=== PATIENT | male | born 1980 | race Hispanic/Latino ===

== ENCOUNTER 2024-04-03 07:32 | Day surgery (SDC) | payer BC ==
[2024-04-03] VITALS (11 sets, daily range): BP systolic 103–122; BP diastolic 59–78; PULSE 58–78; RESP 14–20
[2024-04-03] MEDS ORDERED: MULT-1367 PO (11:45)
[2024-04-03] MEDS ORDERED: MONT-39 PO (11:45)
[2024-04-03] MEDS: LACTATED RINGERS 1000ML 1,000 ML IV ONE (11:46)
[2024-04-03] MEDS ORDERED: FENTANYL CITRATE PF 50 MCG/1 ML 2ML VIAL ONE (12:01)
[2024-04-03] MEDS ORDERED: PROPOFOL 10 MG/ML 20ML VIAL IV ONE ×2 (12:01→13:03)
[2024-04-03] MEDS ORDERED: LIDOCAINE HCL 400MG/20ML VIAL ONE (12:02)
[2024-04-03] MEDS ORDERED: ONDANSETRON 4MG INJ ONE (12:02)
[2024-04-03] MEDS ORDERED: IOHEXOL-350 50ML VIAL IV ONE (12:26)
== END 2024-04-03 14:05 | disposition home or self-care (01) ==
LOC: ENDO 07:32
PROVIDERS: ATTEND Internal Medicine Gastroenterology
DX: Z46.59 Encounter for fitting and adjustment of other gastrointestinal appliance and device (principal); K80.50 Calculus of bile duct without cholangitis or cholecystitis without obstruction; Z79.01 Long term (current) use of anticoagulants; Z90.49 Acquired absence of other specified parts of digestive tract; Z88.8 Allergy status to other drugs, medicaments and biological substances; Z88.3 Allergy status to other anti-infective agents
CPT/HCPCS: 43264; 74328; 43275; J7120; J3010; J3490; J2704 ×2; J2405; Q9967; A4215 ×2; A4223; A4657 ×2; A7002; A4222; A4221; A4663; A4606; C1769; C1773; 74330

== ENCOUNTER 2024-04-05 17:12 | Inpatient (IN) | payer BC ==
[~2024-04-05] VITALS: Ht 182.9 cm; Wt 88.2 kg
[~2024-04-05 17:12] MED LIST: MONT-39 PO; MULT-1367 PO
[2024-04-05 18:39] LABS: BASOPHILS # (AUTO) 0.02 K/uL (0.00-0.20); BASOPHILS % (AUTO) 0.4 % (0.0-5.0); EOSINOPHILS # (AUTO) 0.07 K/uL (0.00-0.70); EOSINOPHILS % (AUTO) 1.4 % (0.0-8.0); HEMATOCRIT 46.7 % (42-54); IMMATURE GRANULOCYTE ABSOLUTE 0.01 K/uL (0-1); LYMPHOCYTES # (AUTO) 0.7 K/uL (1.0-4.8); LYMPHOCYTES % (AUTO) 13.1 % (21.0-51.0); MEAN CORPUSCULAR HEMOGLOBIN 29.1 pg (27.0-33.0); MEAN CORPUSCULAR HGB CONC 33.8 g/dL (32.0-36.0); MONOCYTES # (AUTO) 0.5 K/uL (0.1-1.0); MONOCYTES % (AUTO) 10.4 % (3.0-13.0); NEUTROPHILS # (AUTO) 3.8 K/uL (1.8-7.7); NEUTROPHILS % (AUTO) 74.5 % (40.0-77.0); PLATELET COUNT (AUTO) 148 K/uL (130-400); RED BLOOD CELL COUNT(AUTO) 5.43 MIL/uL (4.50-6.20); WHITE BLOOD COUNT (AUTO) 5.1 K/uL (4.8-10.8)
[2024-04-05] MEDS ORDERED: IOHEXOL 350 MG/ML 100ML INFUS..BTL IV ONE (18:46)
[2024-04-05 18:47] LABS: POTASSIUM 4.5 mmol/L (3.5-5.1)
[2024-04-05 18:56] LABS: ALBUMIN 3.9 g/dL (3.5-5.0); BILIRUBIN,TOTAL 10.5 mg/dL (0.2-1.0); TOTAL PROTEIN, SERUM 7.2 g/dL (6.0-8.3)
[2024-04-05 19:07] LABS: APPEARANCE,URINE CLEAR (CLEAR); BILIRUBIN,URINE 2 mg/dL (NEGATIVE); COLOR,URINE DARK-YELLOW (YELLOW); GLUCOSE, URINE (UA) NEGATIVE (NEGATIVE); KETONES,URINE 20 mg/dL (NEGATIVE); LEUKOCYTE ESTERASE ,URINE NEGATIVE Leu/uL (NEGATIVE); NITRATE,URINE NEGATIVE (NEGATIVE); OCCULT BLOOD,URINE NEGATIVE (NEGATIVE); PH,URINE 6.5 (5.0-8.0); PROTEIN,URINE NEGATIVE (NEGATIVE); UROBILINOGEN,URINE 0.2 mg/dL (0.2-1.0)
[2024-04-05 19:08] LABS: ADD UA MICROSCOPIC YES
[2024-04-05 19:09] LABS: RBC,URINE 0-1 /HPF (0-1); WBC,URINE 0-1 /HPF (0-1)
[2024-04-05] MEDS ORDERED: DIATR MEGLU/DIATRIZOATE SODIUM 30 ML BOTTLE ONE (19:54)
[2024-04-05] MEDS: ACETAMINOPHEN 325 MG TAB PO PRN (20:59)
[2024-04-05] MEDS ORDERED: ONDANSETRON 4MG INJ IVP PRN (21:00)
[2024-04-05] MEDS: SOLU-MEDROL 125MG VIAL IVP STA (21:00)
[2024-04-05] MEDS: DIPHENHYDRAMINE HCL 25 MG CAPSULE PO STA (21:00)
[2024-04-06] VITALS (8 sets, daily range): BP systolic 113–133; BP diastolic 68–80; PULSE 60–86; RESP 17–19; O2SAT 96–98
[2024-04-06 13:11] LABS: MEAN CORPUSCULAR HEMOGLOBIN 28.3 pg (27.0-33.0); MEAN CORPUSCULAR HGB CONC 32.9 g/dL (32.0-36.0); MEAN CORPUSCULAR VOLUME 86.1 fL (79-99); PLATELET COUNT (AUTO) 175 K/uL (130-400); RED BLOOD CELL COUNT(AUTO) 5.69 MIL/uL (4.50-6.20); RED CELL DISTRIBUTION WIDTH 13.2 % (11.0-15.5)
[2024-04-06 13:54] LABS: BILIRUBIN,DIRECT 3.7 mg/dL (0.0-0.3); BILIRUBIN,TOTAL 5.2 mg/dL (0.2-1.0); MAGNESIUM 2.2 mg/dL (1.80-2.40); TOTAL PROTEIN, SERUM 7.9 g/dL (6.0-8.3)
[2024-04-06 14:10] LABS: BASOPHILS # (AUTO) 0.02 K/uL (0.00-0.20); BASOPHILS % (AUTO) 0.7 % (0.0-5.0); EOSINOPHILS # (AUTO) 0.08 K/uL (0.00-0.70); EOSINOPHILS % (AUTO) 2.7 % (0.0-8.0); IMMATURE GRANULOCYTE ABSOLUTE 0.01 K/uL (0-1); LYMPHOCYTES # (AUTO) 0.6 K/uL (1.0-4.8); LYMPHOCYTES % (AUTO) 19.5 % (21.0-51.0); MONOCYTES # (AUTO) 0.4 K/uL (0.1-1.0); NEUTROPHILS # (AUTO) 1.9 K/uL (1.8-7.7); NEUTROPHILS % (AUTO) 63.8 % (40.0-77.0)
[2024-04-07] VITALS (33 sets, daily range): BP systolic 122–146; BP diastolic 77–97; PULSE 60–98; RESP 15–20; O2SAT 97–99
[2024-04-07] MEDS ORDERED: GLYCOPYRROLATE 0.2 MG/ML 5 ML VIAL ONE (07:53)
[2024-04-07] MEDS ORDERED: ROCURONIUM BROMIDE 10MG/1ML 5ML VL ONE (07:53)
[2024-04-07] MEDS ORDERED: NEOSTIGMINE METHYLSULFATE 1MG/ML IV ONE (07:53)
[2024-04-07] MEDS ORDERED: FENTANYL CITRATE PF 50 MCG/1 ML 2ML VIAL ONE (07:54)
[2024-04-07] MEDS ORDERED: IOHEXOL-350 50ML VIAL IV ONE (08:12)
[2024-04-07] MEDS ORDERED: PROPOFOL 10 MG/ML 20ML VIAL IV ONE (08:24)
[2024-04-07] MEDS ORDERED: ONDANSETRON 4MG INJ ONE (08:24)
[2024-04-07] MEDS: MEPERIDINE-PF 25 MG/ML SYG ONE (09:15)
[2024-04-07] MEDS ORDERED: MORPHINE 2 MG SYG IVP PRN (12:00)
[2024-04-07] MEDS: MORPHINE 2 MG SYG IVP PRN (12:18)
[2024-04-07] MEDS: HYDROMORPHONE 0.5 MG SYG (0.5MG/0.5ML) IVP PRN (16:35)
[2024-04-07] MEDS ORDERED: MONTELUKAST SODIUM 10 MG TAB PO SCH (18:00)
[2024-04-07] MEDS: TRAMADOL HCL 50 MG TABLET PO PRN (21:39)
[2024-04-08] VITALS: BP 141/89; PULSE 90; RESP 16
[2024-04-08 04:00] VITALS: BP 137/89; PULSE 110; RESP 16
[2024-04-08 04:49] LABS: HEMATOCRIT 42.8 % (42-54); MEAN CORPUSCULAR HEMOGLOBIN 28.9 pg (27.0-33.0); MEAN CORPUSCULAR HGB CONC 33.6 g/dL (32.0-36.0); MEAN CORPUSCULAR VOLUME 85.9 fL (79-99); RED BLOOD CELL COUNT(AUTO) 4.98 MIL/uL (4.50-6.20); RED CELL DISTRIBUTION WIDTH 12.9 % (11.0-15.5); WHITE BLOOD COUNT (AUTO) 4.7 K/uL (4.8-10.8)
[2024-04-08 05:18] LABS: ALBUMIN 3.3 g/dL (3.5-5.0); BILIRUBIN,DIRECT 1.8 mg/dL (0.0-0.3); BILIRUBIN,TOTAL 2.6 mg/dL (0.2-1.0); CREATININE 1.3 mg/dL (0.5-1.3); MAGNESIUM 1.9 mg/dL (1.80-2.40); TOTAL PROTEIN, SERUM 6.4 g/dL (6.0-8.3)
[2024-04-08 08:00] VITALS: BP 138/90; PULSE 89; RESP 18; O2SAT 99
[2024-04-08] MEDS: MULTIVITAMIN TABLET PO SCH (09:00)
[2024-04-08 11:58] VITALS: BP 135/82; PULSE 79; RESP 18
== END 2024-04-08 14:27 | disposition home or self-care (01) | DRG 446 ==
LOC: EDH 17:12 → OBSVTOIN 19:55 → EDHIP 19:55 → 3CH 04-06 02:16 → 3AH 04-07 12:30
PROVIDERS: ADMIT Internal Medicine Infectious Disease; ATTEND Internal Medicine Infectious Disease
PROC: 0F798DZ Dilation of Common Bile Duct with Intraluminal Device, Via Natural or Artificial Opening Endoscopic (ICD-10-PCS; principal; 2024-04-07)
DX: K80.51 Calculus of bile duct without cholangitis or cholecystitis with obstruction (principal); E66.9 Obesity, unspecified; I10 Essential (primary) hypertension; Z85.47 Personal history of malignant neoplasm of testis; Z68.26 Body mass index [BMI] 26.0-26.9, adult; Z90.49 Acquired absence of other specified parts of digestive tract; Z79.899 Other long term (current) drug therapy
CPT/HCPCS: 36415; 43264; 43274; 74176; 74328; 74330; 80048; 80053; 80076; 81001; 82150; 82550; 83690; 83735; 84484; 85025; 85027; 93005; A4606; C1769; C1773; C1874; G0378; J1170; J2175; J2270; J2405; J2704; J2710; J2919; J3010; J3490; J7030; Q0163; Q9963; Q9967; A4215; A4222; A4223; A7002